=== PATIENT | female | born 1940 | race Caucasian/White ===

== ENCOUNTER → 2016-12-26 | Outpatient (CLI) | payer OTHER ==
[~2016-12-26] MED LIST: ALBUTEROL INHAL17 GM IH; COUMADIN7.5 MG PO; LOTREL 5-20 MG1 EACH PO; SIMVASTATIN40 MG PO; ZPAK PO
== END ==
LOC: RAD 07:53
DX: Z12.31 Encounter for screening mammogram for malignant neoplasm of breast (principal)

== ENCOUNTER → 2018-02-18 | Outpatient (CLI) | payer OTHER ==
[2018-02-18 07:58] LABS: CREATININE 0.7 mg/dL (0.6-1.0)
== END ==
LOC: CAT 07:19
PROVIDERS: Family Medicine
DX: M47.816 Spondylosis without myelopathy or radiculopathy, lumbar region (principal); M48.061 Spinal stenosis, lumbar region without neurogenic claudication; I10 Essential (primary) hypertension

== ENCOUNTER 2018-09-27 17:44 | Emergency (ER) | payer OTHER ==
[~2018-09-27] VITALS: Ht 157.5 cm; Wt 83.9 kg
[2018-09-27 19:45] LABS: ABSOLUTE NEUTROPHILS 9.6 thou/uL (1.4-8.2); BASOPHILS 0.7 % (0.0-2.0); EOSINOPHILS 0.2 % (0.0-3.0); HEMATOCRIT 38.2 % (37.0-47.0); HEMOGLOBIN 12.6 gm/dL (12.0-15.0); LYMPHOCYTES 17.7 % (24.0-44.0); MCH 28.9 pg (26.0-34.0); MCHC 33.1 g/dL (28.0-37.0); MCV 87.4 fL (80.0-100.0); MONOCYTES 11.9 % (1.0-8.0); PLATELET COUNT 186 thou/uL (150-400); POLYS 69.5 % (36.0-66.0); RBC 4.37 mil/uL (4.20-5.00); RDW 15.3 % (10.5-14.5); WBC 13.8 thou/uL (4.0-11.0)
[2018-09-27 19:50] LABS: ANION GAP 9 mmol/L (7-16); BUN 21 mg/dL (7-18); CHLORIDE 98 mmol/L (98-107); CO2 28 mmol/L (21-32); CREATININE 0.9 mg/dL (0.6-1.0); GLUCOSE 146 mg/dL (74-106); POTASSIUM 3.2 mmol/L (3.5-5.1); SODIUM 135 mmol/L (136-145)
[2018-09-27 19:58] LABS: ALBUMIN 3.8 g/dL (3.4-5.0); MAGNESIUM 1.6 mg/dL (1.8-2.4); SGOT 32 U/L (15-37); SGPT 35 U/L (30-65); TOTAL BILIRUBIN 1.3 mg/dL (<0.1-1.0); TOTAL PROTEIN 7.8 g/dL (6.4-8.2); TROPONIN-I <0.06 ng/mL (<0.06)
[2018-09-27 20:43] LABS: URINE BILIRUBIN NEGATIVE (Negative); URINE BLOOD 1+ (Negative); URINE CLARITY CLEAR; URINE COLOR YELLOW; URINE GLUCOSE-RANDOM* NEGATIVE (Negative); URINE KETONES NEGATIVE (Negative); URINE LEUKOCYTES-REFLEX 1+ (Negative); URINE NITRITE-REFLEX POSITIVE (Negative); URINE PROTEIN (DIPSTICK) 1+ (Negative); URINE UROBILINOGEN 0.2 E.U./dl (0.2-1.0)
[2018-09-27 20:43] LABS: APTT 42.6 Seconds (24.5-32.8); INR 1.8; PROTIME 18.4 Seconds (9.3-11.4)
[2018-09-27] MEDS ORDERED: CEFUROXIME500 MG PO (20:46)
[2018-09-27] MEDS ORDERED: TRAMADOL 50 MG50 MG PO (20:46)
[2018-09-27] MEDS ORDERED: NORFLEX100 MG PO (20:46)
[2018-09-27 20:52] LABS: SQUAMOUS 0-3 Few /LPF (0-3)
[2018-09-27 20:53] LABS: BACTERIA-REFLEX >30 Many /HPF (None Seen); CASTS None Seen /LPF (None Seen); CRYSTALS None Seen /LPF (None Seen); MUCUS 0-3 Light strn/LPF (None Seen); URINE RBC 0-2 Rare /HPF (0-2); URINE WBC-REFLEX >25 Many /HPF (0-5)
[2018-09-27 21:25] VITALS: BP 124/55
--- NOTE | 2018-09-28 02:37 | EKG ---
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1940 Requested By: Mukesh Meyers Order Number: [id number] MD: Rj Escamilla Measurements Intervals [place] Rate: 80 P: 69 MS: 143 QRS: 24 QRSD: 87 T: 17 QT: 378 QTc: 436 Interpretive Statements Sinus rhythm Nonspecific ST-T wave changes Compared to ECG 01/16/2011 10:02:28 No significant changes Electronically Signed On 09-28-2018 2:37:42 ELEMENT WINDING MACHINE TENDER by Rj Escamilla [email or web address] ��������������������������������������������� <ELECTRONICALLY SIGNED> ���������������������������������������� By: Rj Escamilla MD ��������������������������������������������� 09/28/18 0237 1751 50 Rj Escamilla MD /FARZANA
== END 2018-09-27 21:30 | disposition home or self-care (01) ==
LOC: ER 17:44
PROVIDERS: Emergency Medicine
DX: M43.6 Torticollis (principal); N39.0 Urinary tract infection, site not specified; E78.00 Pure hypercholesterolemia, unspecified; I10 Essential (primary) hypertension; Z88.0 Allergy status to penicillin

== ENCOUNTER → 2018-10-24 | Outpatient (CLI) | payer OTHER ==
[~2018-10-24] MED LIST changes: +CEFUROXIME500 MG PO; +NORFLEX100 MG PO; +TRAMADOL 50 MG50 MG PO
== END ==
LOC: RAD 07:56
DX: Z12.31 Encounter for screening mammogram for malignant neoplasm of breast (principal)

== ENCOUNTER → 2018-12-23 | Outpatient (CLI) | payer OTHER | LOC: ULTRA 09:46 | DX: M79.89 Other specified soft tissue disorders (principal); M79.661 Pain in right lower leg ==

== ENCOUNTER → 2020-01-13 | Outpatient (CLI) | payer OTHER | LOC: RAD 09:33 | PROVIDERS: ATTEND Family Medicine | DX: Z12.31 Encounter for screening mammogram for malignant neoplasm of breast (principal) ==

== ENCOUNTER 2020-05-24 08:29 | Inpatient (IN) | payer OTHER ==
[~2020-05-24] VITALS: Ht 157.5 cm; Wt 88.5 kg
[2020-05-24 08:30] VITALS: BP 127/65
[2020-05-24 09:13] LABS: ABSOLUTE NEUTROPHILS 5.1 thou/uL (1.4-8.2); BASOPHILS 0.5 % (0.0-2.0); EOSINOPHILS 0.1 % (0.0-3.0); HEMATOCRIT 39.3 % (37.0-47.0); HEMOGLOBIN 13.1 gm/dL (12.0-15.0); MCH 30.3 pg (26.0-34.0); MCHC 33.3 g/dL (28.0-37.0); MCV 91.2 fL (80.0-100.0); MONOCYTES 7.5 % (1.0-8.0); PLATELET COUNT 215 thou/uL (150-400); POLYS 71.9 % (36.0-66.0); RBC 4.31 mil/uL (4.20-5.00); RDW 16.3 % (10.5-14.5); WBC 7.1 thou/uL (4.0-11.0)
[2020-05-24 09:24] LABS: ANION GAP 10 mmol/L (7-16); BUN 36 mg/dL (7-18); CALCIUM 8.4 mg/dL (8.5-10.1); CHLORIDE 94 mmol/L (98-107); CO2 26 mmol/L (21-32); CREATININE 1.5 mg/dL (0.6-1.0); GLUCOSE 155 mg/dL (74-106); POTASSIUM 3.9 mmol/L (3.5-5.1); SODIUM 130 mmol/L (136-145)
[2020-05-24 09:32] LABS: TROPONIN-I <0.06 ng/mL (<0.06)
[2020-05-24 09:33] LABS: D-DIMER 0.36 ug/mLFEU (0.19-0.50); INR 2.5
[2020-05-24] MEDS ORDERED: METFORMIN HCL500 M3 PO (10:19)
[2020-05-24] MEDS ORDERED: SYNTHROID112 MC1 PO (10:19)
--- NOTE | 2020-05-24 11:08 | EKG ---
[facility] [place] [address] ELECTROCARDIOGRAM REPORT Name: MERCEDES LOZA Room #: REG [facility]#: [id number] Admission: 05/24/20 Attend Phys: Discharge: Date of : 42 Report #: [id number] THIS REPORT FOR: cc: Gino Banks MD, Rene P. MD Couchonnal, Luis F. 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
[2020-05-24 12:55] VITALS: BP 103/40
[2020-05-24 13:21] LABS: URINE BILIRUBIN NEGATIVE (Negative); URINE BLOOD NEGATIVE (Negative); URINE CLARITY CLEAR; URINE COLOR YELLOW; URINE GLUCOSE-RANDOM* NEGATIVE (Negative); URINE KETONES NEGATIVE (Negative); URINE LEUKOCYTES-REFLEX TRACE (Negative); URINE NITRITE-REFLEX POSITIVE (Negative); URINE PROTEIN (DIPSTICK) NEGATIVE (Negative); URINE SPECIFIC GRAVITY <= 1.005 (1.005-1.035); URINE UROBILINOGEN 0.2 E.U./dl (0.2-1.0)
[2020-05-24] MEDS ORDERED: BYSTOLIC10 MG PO (13:26)
[2020-05-24] MEDS ORDERED: OMEPRAZOLE40 MG PO (13:27)
[2020-05-24 13:38] LABS: CASTS None Seen /LPF (None Seen); SQUAMOUS 4-10 Moderate /LPF (0-3); URINE RBC None Seen /HPF (0-2); URINE WBC-REFLEX 6-15 Few /HPF (0-5)
[2020-05-24 13:39] LABS: CRYSTALS None Seen /LPF (None Seen)
[2020-05-24 13:58] LABS: FOLIC ACID 25.4 ng/mL (8.6-58.9); TSH 1.294 uIU/mL (0.358-3.740)
[2020-05-24 15:28] VITALS: BP 120/50
--- NOTE | 2020-05-24 16:35 | NUR ---
assumed care of pt on arrival to unit. pt presents in no acute distress. on room air. some tachypnea with exertion. up ad fabby w/ steady gait. Tmax 99.3. IV fluids and abx infusing per order. sinus on telemetry. med rec completed. pt in room, watching tv, calling out appropriately as needed. wcm.
[2020-05-24] MEDS ORDERED: WARFARIN SODIU7.5 MG PO (16:39)
[2020-05-24 19:53] VITALS: BP 109/47
[2020-05-24 23:51] VITALS: BP 112/56
[2020-05-25 03:10] VITALS: BP 122/67
[2020-05-25 05:52] LABS: HEMATOCRIT 37.3 % (37.0-47.0); HEMOGLOBIN 12.2 gm/dL (12.0-15.0); MCH 30.1 pg (26.0-34.0); MCHC 32.7 g/dL (28.0-37.0); PLATELET COUNT 164 thou/uL (150-400); RBC 4.05 mil/uL (4.20-5.00); RDW 16.5 % (10.5-14.5); WBC 2.8 thou/uL (4.0-11.0)
[2020-05-25 05:59] LABS: CALCIUM 8.1 mg/dL (8.5-10.1); CREATININE 1.2 mg/dL (0.6-1.0); MAGNESIUM 1.5 mg/dL (1.8-2.4); POTASSIUM 4.2 mmol/L (3.5-5.1)
--- NOTE | 2020-05-25 06:09 | NUR ---
Pt. stated she slept well during the night. Denies any discomfort at this time. Cont. on enhanced precaution , afebrile. Up ad fabby in room with steady gait. Tolerating room air well with O2 sat in the low 90 to mid 90's in room air.
[2020-05-25 07:35] VITALS: BP 124/54
[2020-05-25 07:52] LABS: ABSOLUTE NEUTROPHILS 2.1 thou/uL (1.4-8.2); ATYPICAL LYMPHS 1 %
[2020-05-25 07:53] LABS: ANISOCYTOSIS 1+; LARGE PLATELETS OCCASIONAL; POIKILOCYTOSIS SLIGHT
[2020-05-25 11:13] LABS: ALBUMIN 3.1 g/dL (3.4-5.0); DIRECT BILIRUBIN 0.2 mg/dL (<0.1-0.2); TOTAL BILIRUBIN 0.4 mg/dL (0.2-1.0); TOTAL PROTEIN 6.7 g/dL (6.4-8.2)
[2020-05-25 11:16] VITALS: BP 135/65
--- NOTE | 2020-05-25 12:58 | NUR ---
INITIAL ASSESSMENT: SW reviewed chart and spoke with nursing and attending physician. Pt was admitted from home due to pneumonia. Pt placed in Enhanced Isolation due to testing positive for COVID-19. Pt is afebrile and not requiring O2. Pt is on IV abx. ID consulted and will follow for possible need for course of Remdesivir. SW spoke with pt via phone. Introduced role of SW. Pt is alert/orientated x 4. 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 Pt is independent with ADLs and lives at home. Pt's PCP is Dr. Banks. Pt's goal is to return home when medically stable. SW is following to assist as needed with discharge planning.
[2020-05-25 15:11] VITALS: BP 142/64
--- NOTE | 2020-05-25 18:39 | NUR ---
ASSUMED PATIENT CARE AT 0700. A/0 X4. PLEASEANT. TOLERATED ON RA. DENIES PAIN. AFEBRILE. SLOWLY TOWARDS POC GOALS.
[2020-05-25 20:05] VITALS: BP 157/70
[2020-05-26 03:17] LABS: PROTIME 20.3 Seconds (9.3-11.4)
[2020-05-26 04:11] VITALS: BP 136/49
--- NOTE | 2020-05-26 05:53 | NUR ---
Pt. slept fair during the night. Tolerating room air well with O2 sat in the low to mid 90's. Reported shortness of breath with exertion only. Remdesivir Iv given x1 per ID order. Pt. education given regarding remdesivir and printed information given to pt. MRSA swab done. Sputum and urine sample sent to lab. Pt. is up ad fabby in room with steady gait.
[2020-05-26 08:05] VITALS: BP 151/51
[2020-05-26 09:27] LABS: ALBUMIN 3.1 g/dL (3.4-5.0); CREATININE 1.2 mg/dL (0.6-1.0); DIRECT BILIRUBIN 0.1 mg/dL (<0.1-0.2); TOTAL BILIRUBIN 0.3 mg/dL (0.2-1.0); TOTAL PROTEIN 6.5 g/dL (6.4-8.2)
[2020-05-26 11:39] VITALS: BP 149/68
[2020-05-26 15:08] VITALS: BP 154/58
--- NOTE | 2020-05-26 16:00 | NUR ---
SW reviewed chart and spoke with nursing and attending physician. Pt remains in Enhanced Isolation due to COVID-19. Pt is afebrile and not currently on O2. Pt is on IV abx and IV steroids. Pt started course of Remdesivir. Plan is for pt to discharge home when medically stable. MARIA E is following to assist as needed with discharge planning.
[2020-05-26 19:52] VITALS: BP 151/56
--- NOTE | 2020-05-26 20:21 | NUR ---
ASSUMED CARE APPROX 0700. PT ALERT AND ORIENTED X4. ASSESSMENTS CHARTED AND VSS. SR ON TELE MONITOR. DENIES PAIN THIS SHIFT. PT'S BP ELEVATED. REQUESTED HOME MEDS BE RESUMED. DR. HOOKER NOTIFIED. PT DENIES SHORTNESS OF BREATH. ON ROOM AIR W/O DISTRESS NOTED.
[2020-05-27 03:45] VITALS: BP 153/45
[2020-05-27 06:17] LABS: ABSOLUTE NEUTROPHILS 6.6 thou/uL (1.4-8.2); BASOPHILS 0.2 % (0.0-2.0); HEMATOCRIT 34.8 % (37.0-47.0); HEMOGLOBIN 11.4 gm/dL (12.0-15.0); LYMPHOCYTES 21.2 % (24.0-44.0); MCHC 32.9 g/dL (28.0-37.0); MCV 91.4 fL (80.0-100.0); MONOCYTES 9.1 % (1.0-8.0); PLATELET COUNT 202 thou/uL (150-400); POLYS 69.5 % (36.0-66.0); RDW 16.7 % (10.5-14.5); WBC 9.5 thou/uL (4.0-11.0)
[2020-05-27 06:31] LABS: ALBUMIN 2.9 g/dL (3.4-5.0); CALCIUM 8.6 mg/dL (8.5-10.1); CREATININE 0.9 mg/dL (0.6-1.0); POTASSIUM 3.7 mmol/L (3.5-5.1); TOTAL BILIRUBIN 0.4 mg/dL (0.2-1.0); TOTAL PROTEIN 6.7 g/dL (6.4-8.2)
[2020-05-27 06:32] LABS: ALBUMIN 2.9 g/dL (3.4-5.0); CREATININE 0.9 mg/dL (0.6-1.0); DIRECT BILIRUBIN 0.1 mg/dL (<0.1-0.2); FIBRINOGEN 351.3 mg/dL (210-360); INR 2.7; PROTIME 27.6 Seconds (9.3-11.4); TOTAL BILIRUBIN 0.4 mg/dL (0.2-1.0); TOTAL PROTEIN 6.7 g/dL (6.4-8.2)
[2020-05-27 07:51] VITALS: BP 148/55
--- NOTE | 2020-05-27 08:14 | NUR ---
PT MAKING PROGRESS TOWARDS GOALS. PT REPORTING MILD SOA AFTER ACTIVITY SUCH AMBULATING TO USE THE TOILET. STATES SHE NOTICES THAT BY THE TIME SHE GETS BACK TO THE BED SHE IS SOA. ABLE TO RESOLVE SOA WITH REST, DENIED NEEDING ANY OXYGEN.
[2020-05-27 11:20] VITALS: BP 145/64
[2020-05-27 15:25] VITALS: BP 151/62
--- NOTE | 2020-05-27 16:01 | NUR ---
SW reviewed chart and spoke with nursing and attending physician. Pt remains in Enhanced Isolation due to COVID-19. Pt is afebrile and not requiring O2. Pt is on IV abx and IV steroids. Pt is completing course of Remdesivir. Plan is for pt to discharge home when medically stable. MARIA E is following to assist as needed with discharge planning.
--- NOTE | 2020-05-27 16:40 | NUR ---
ASSUMED CARE APPROX 0700. PT ALERT AND ORIENTED X4. ASSESSMENTS CHARTED AND VSS. PT AFEBRILE THIS SHIFT. ON ROOM AIR W/O DISTRESS NOTED. PT DENIES ACUTE PAIN. PT DENIES CHEST PAIN. REMDESIVIR STARTED THIS SHIFT W/O COMPLICATIONS. RESTING COMFORTABLY IN BED. PT PROGRESSING TOWARDS PLAN OF CARE GOALS
[2020-05-27 20:38] VITALS: BP 168/81
[2020-05-27] MEDS ORDERED: HYDROCHLOROTHIA25 M2 PO (20:41)
--- NOTE | 2020-05-28 03:57 | NUR ---
ASSUMED CARE AT 1900. PT REPORTS SOB W/ACTIVITY BUT IS COMFORTABLE AT REST. DENIES PAIN OR NAUSEA. HAS BEEN SB IN 50'S OVERNIGHT. HS BLOOD SUGAR 242, GAVE 10 UNITS INSULIN. NO OTHER CONCERNS, WILL CONTINUE TO MONITOR.
[2020-05-28 04:48] VITALS: BP 141/57
[2020-05-28 07:02] LABS: INR 3.2; PROTIME 32.6 Seconds (9.3-11.4)
[2020-05-28 07:11] LABS: ALBUMIN 2.8 g/dL (3.4-5.0); CREATININE 0.8 mg/dL (0.6-1.0); DIRECT BILIRUBIN 0.1 mg/dL (<0.1-0.2); TOTAL BILIRUBIN 0.5 mg/dL (0.2-1.0); TOTAL PROTEIN 6.5 g/dL (6.4-8.2)
[2020-05-28 07:55] VITALS: BP 150/61
[2020-05-28 11:41] VITALS: BP 158/59
[2020-05-28 15:16] VITALS: BP 176/64
--- NOTE | 2020-05-28 16:06 | NUR ---
SW reviewed chart and spoke with nursing and attending physician. Pt remains in Enhanced Isolation due to COVID-19. Pt is afebrile and not requiring O2. Pt is on IV abx and IV steroids. Pt is completing course of Remdesivir. SW placed call into pt's room multiple times. No answer. No anticipated discharge needs identified at this time. SW is following to assist should needs arise.
[2020-05-28 16:08] VITALS: BP 164/68
--- NOTE | 2020-05-28 18:32 | NUR ---
ASSUMED CARE OF PT AT 0700. PT AOX4 IN NO ACUTE DISTRESS. BREATHING COMFORTABLY ON ROOM AIR. TACHYPNEA WITH EXERTION IMPROVING. GOOD APPETITE. IV SITE CHANGED. WCM .
[2020-05-28 19:29] VITALS: BP 155/56
[2020-05-29 05:26] LABS: INR 2.8; PROTIME 29.1 Seconds (9.3-11.4)
[2020-05-29 05:37] LABS: ALBUMIN 2.7 g/dL (3.4-5.0); CREATININE 0.8 mg/dL (0.6-1.0); DIRECT BILIRUBIN 0.2 mg/dL (<0.1-0.2); TOTAL BILIRUBIN 0.6 mg/dL (0.2-1.0); TOTAL PROTEIN 6.4 g/dL (6.4-8.2)
[2020-05-29 05:50] VITALS: BP 158/53
--- NOTE | 2020-05-29 06:04 | NUR ---
PT MAKING PROGRESS TOWARDS GOALS. PT REPORTING SHE IS AMBULATING TO TOILET AND BACK WITH NO SENSE OF SOA. CONTINUE TO MONITOR.
[2020-05-29 07:47] VITALS: BP 174/73
--- NOTE | 2020-05-29 10:44 | NUR ---
PATIENT RESTING IN BED ALERT XS 4 ATE BREAKFAST AND TOOK AM MEDS IV NURSE TO PLACE NEW LINE RIGHT FA INFILTRATED PT STATES SHE IS HARD STICK AND PREFERS IV NURSE AND MACHINE. PT IS PLEASANT AND COOPERATIVE WITH CARE.
[2020-05-29 11:39] VITALS: BP 142/68
[2020-05-29 16:04] VITALS: BP 186/78
--- NOTE | 2020-05-29 18:42 | NUR ---
PT HAD HIGH B/P CALLED HOSPITALIST WHO PUT IN ORDERS FOR MEDS FOR XS 1 ORDERS FOLLOWED AND B/P RECHECKED AND IN COMPUTER.
--- NOTE | 2020-05-29 18:47 | NUR ---
B/P AFTER B/P MEDS = 136/57
[2020-05-29 21:30] VITALS: BP 131/54
[2020-05-30 05:00] VITALS: BP 148/69
[2020-05-30 06:07] LABS: INR 2.4
[2020-05-30 07:16] VITALS: BP 115/60
--- NOTE | 2020-05-30 07:54 | NUR ---
PROGRESS PT A/O X 4 STATES SHE DOESN'T FEEL WELL. BUT COULDN'T ARTICULATE WHAT EXACTLY SHE FELT LIKE A COUPLE HOURS LATER SHE FELT NAUSEOUS AND ZOFRAN GIVEN WITH EFFECT PT SLEPT THE REST OF THE NIGHT BP STAYED WNL AND ENALAPRIT NOT GIVEN, VOIDING QS UP AD JOVANNA CONTINUE POC.
[2020-05-30 11:19] VITALS: BP 134/75
[2020-05-30] MEDS ORDERED: PEPCID AC10 MG PO (14:40)
[2020-05-30] MEDS ORDERED: ACETAMINOPHEN325 M1 PO (14:40)
[2020-05-30] MEDS ORDERED: VITAMIN B-1100 M2 PO (14:40)
[2020-05-30] MEDS ORDERED: DOXYCYCLINE HYC50 MG PO (14:40)
[2020-05-30] MEDS ORDERED: ACEROLA C500 MG PO (14:40)
[2020-05-30 15:28] VITALS: BP 134/75
--- NOTE | 2020-05-30 16:37 | NUR ---
PT A&OX4, VSS, DENIES PAIN AND N/V. PATIENT CONTINUES TO HAVE LOOSE COUGH, SPUTUM CLEAR/YELLOW. PATIENT CLEARED BY ID. PATIENT COMMUNICATES UNDERSTANDING OF DISCHARGE ORDERS. PATIENT TOLERATED DIET. NO SIGNS OF ACUTE DISTRESS. PATIENT DISCHARGED HOME, ALL BELONGINGS TAKEN. IV REMOVED, TELE PACK REMOVED.
== END 2020-05-30 16:35 | disposition home or self-care (01) | DRG 871 ==
LOC: ER 08:29 → 3W 12:02 → EROBS 12:02 → 3W 13:17
PROVIDERS: Emergency Medicine; Nurse Practitioner; Specialist; ADMIT Hospitalist; ATTEND Hospitalist
PROC: XW033E5 Introduction of Remdesivir Anti-infective into Peripheral Vein, Percutaneous Approach, New Technology Group 5 (ICD-10-PCS; principal; 2020-05-26)
PROC: XW033E5 Introduction of Remdesivir Anti-infective into Peripheral Vein, Percutaneous Approach, New Technology Group 5 (ICD-10-PCS; 2020-05-27)
PROC: XW033E5 Introduction of Remdesivir Anti-infective into Peripheral Vein, Percutaneous Approach, New Technology Group 5 (ICD-10-PCS; 2020-05-28)
PROC: XW033E5 Introduction of Remdesivir Anti-infective into Peripheral Vein, Percutaneous Approach, New Technology Group 5 (ICD-10-PCS; 2020-05-29)
PROC: XW033E5 Introduction of Remdesivir Anti-infective into Peripheral Vein, Percutaneous Approach, New Technology Group 5 (ICD-10-PCS; 2020-05-30)
DX: A41.89 Other specified sepsis (principal); U07.1 COVID-19; J12.89 Other viral pneumonia; J15.9 Unspecified bacterial pneumonia; N17.9 Acute kidney failure, unspecified; N39.0 Urinary tract infection, site not specified; Z16.12 Extended spectrum beta lactamase (ESBL) resistance; D68.59 Other primary thrombophilia; E87.1 Hypo-osmolality and hyponatremia; I16.0 Hypertensive urgency; I10 Essential (primary) hypertension; E11.9 Type 2 diabetes mellitus without complications; E86.0 Dehydration; E03.9 Hypothyroidism, unspecified; E78.5 Hyperlipidemia, unspecified; E78.00 Pure hypercholesterolemia, unspecified; R91.8 Other nonspecific abnormal finding of lung field; E66.9 Obesity, unspecified; E87.8 Other disorders of electrolyte and fluid balance, not elsewhere classified; Z86.711 Personal history of pulmonary embolism; Z86.718 Personal history of other venous thrombosis and embolism; Z79.01 Long term (current) use of anticoagulants; Z79.899 Other long term (current) drug therapy; Z88.0 Allergy status to penicillin; Z98.42 Cataract extraction status, left eye; Z98.41 Cataract extraction status, right eye; Z87.891 Personal history of nicotine dependence; Z68.35 Body mass index [BMI] 35.0-35.9, adult
CPT/HCPCS: 10879

== ENCOUNTER → 2020-06-04 | Outpatient (CLI) | payer OTHER ==
[~2020-06-04] MED LIST changes: +ACEROLA C500 MG PO; +ACETAMINOPHEN325 M1 PO; +BYSTOLIC10 MG PO; +C-10001000 MG PO; +DOXYCYCLINE HYC50 MG PO; +HYDROCHLOROTHIA25 M2 PO; +METFORMIN HCL500 M3 PO; +OMEPRAZOLE 20 M20 M1 PO; +OMEPRAZOLE40 MG PO; +PEPCID AC10 MG PO; +SYNTHROID112 MC1 PO; +TYLENOL325 MG PO; +VITAMIN B-1100 M2 PO; +WARFARIN SODIU7.5 MG PO
== END ==
LOC: LAB 09:58
PROVIDERS: ATTEND Pediatrics
DX: U07.1 COVID-19 (principal)

== ENCOUNTER → 2020-06-08 | Outpatient (CLI) | payer OTHER | LOC: LAB 08:29 | PROVIDERS: ATTEND Pediatrics | DX: Z20.828 Contact with and (suspected) exposure to other viral communicable diseases (principal) ==

== ENCOUNTER 2020-06-09 08:26 | Outpatient (CLI) | payer OTHER ==
[~2020-06-09] VITALS: Ht 157.5 cm; Wt 86.2 kg
[2020-06-09 09:57] VITALS: BP 174/82
[2020-06-09 10:14] LABS: INR 1.4; PROTIME 13.9 Seconds (9.3-11.4)
--- NOTE | 2020-06-11 15:07 | PATH ---
[facility] [place] [address] PATHOLOGY RPT PROCEDURE Name: MERCEDES LOZA Room #: DEP [facility]#: [id number] Admission: 06/09/20 Date of : 42 Discharge: 06/09/20 Report #: [id number] Path Case #: [id number] Note [facility] Accession Number: [id number] TESTS RESULT FLAG UNITS REF RANGE LAB Clinician Provided Cytology Information No. of containers..01 Other (Miscellaneous) Source: RLL BRONCH WASH DIAGNOSIS: RLL BRONCH WASH INCONCLUSIVE. REACTIVE BRONCHIAL CELLS ARE PRESENT. PULMONARY MACROPHAGES (DUST CELLS) ARE PRESENT. THIS INTERPRETATION INCLUDES EVALUATION OF A CELL BLOCK. SCANT ATYPICAL SQUAMOUS EPITHELIAL CELLS, CANNOT EXCLUDE NEOPLASM. Comment: Few groups of atypical squamous epithelial cells are identified. The scant nature precludes a definitive interpretation. The concurrent biopsy sample is pending additional immunohistochemical stains. Please refer to a separate report. Findings of the biopsy tissue are conveyed to Dr. Colbert in the morning of 06/11/2020. Pathologist ICD10: 02 R91.8 Signed out by: Anna Interiano MD, Pathologist NPI- [id number] Performed by: Bertha Clarke, Casting Wheel Operator Helper ([facility]) Gross description: 01 20ML, RED, 1TP 1CB /LCS 06/10/2020 0605 Local FLAG LEGEND: L-Low Normal,H-High Normal,LL-Alert Low,HH-Alert High <-Panic Low,>-Panic High,A-Abnormal,AA-Critical Abnormal Performed at: 01 [facility] [address] [place] [address] [address] [place] [address] Sammy Sun MD, [address] [address] Anna Interiano MD, Specimen Comment: A courtesy copy of this report has been sent to [phone], [phone] [address] PATHOLOGY RPT PROCEDURE Name: MERCEDES LOZA Room #: DEP [facility] Daniels#: [id number] Admission: 06/09/20 Date of : 42 Discharge: 06/09/20 Report #: [id number] Path Case #: [id number] Specimen Comment: [phone] Specimen Comment: Report sent to / DR MCKEON Performed at: [address], [place], [place] [id number] MD Sammy Sun MD Phone: [phone]
--- NOTE | 2020-06-11 17:06 | PATH ---
[facility] [address] [place] [address] PATHOLOGY RPT PROCEDURE Name: SABRA DAVID Mallika Room #: DEP [facility].#: [id number] Admission: 06/09/20 Date of : 42 Discharge: 06/09/20 Report #: [id number] Path Case #: [id number] [facility] Accession Number: [id number] . 01 Material submitted: . PART A: lymph node - RIGHT HILAR LYMPH NODE TBNA. Modifiers: right PART B: bronchus - RLL TISSUE BIOPSY. Modifiers: right, lower lobe . 01 Clinical history: . LUNG MASS . 02 Diagnosis: A. Tissue designated as "right hilar lymph node", transbronchial needle aspiration: - Fragments of atypical squamous epithelium, cannot exclude neoplasm. - No definite lymphoid tissue present, see comment. - Blood admixed with reactive bronchial epithelial cells. . B. Lung, right lower lobe tissue, biopsy: - POSITIVE FOR MALIGNANCY; MODERATELY DIFFERENTIATED SQUAMOUS CELL CARCINOMA. (IUV:blake; 06/11/2020) QMS 06/11/2020 1201 Local . 02 Comment: A. Examination shows blood admixed with reactive bronchial epithelial cells as well as tiny wisps of atypical squamous epithelium. The concurrent cytology material [id number] (please separate report for details) showed lymphoid tangles compatible with adequate lymph node sampling in addition to similar cells. The scant nature precludes a definitive interpretation. Please correlate clinically. . B. Examination shows an epithelial malignancy with scant to rare desmosomes. Properly controlled immunohistochemical stains are performed on block B1. The neoplastic cells show strong reactivity with p63 and are nonreactive to TTF-1 supporting the diagnosis rendered. . Co-review: Part B (level 1) by Dr. Emma Sotelo. . Findings of this case are conveyed to Dr. Kwasi Colbert at approximately 8:45 a.m. on 06/11/2020. (IUV:blake; 06/11/2020) . 02 Electronically signed: . Anna Interiano MD, Pathologist NPI- [id number] . 01 [place] [address] PATHOLOGY RPT PROCEDURE Name: SABRA DAVID Room #: DEP [facility]#: [id number] Admission: 06/09/20 Date of : 42 Discharge: 06/09/20 Report #: [id number] Path Case #: [id number] Gross description: . A. Received in formalin labeled "Sabra David, right hilar lymph node TBNA" are multiple minute fragments of gresham-red soft tissue measuring in aggregate 2.0 x 0.3 x 0.1 cm. The specimen is filtered and submitted entirely in cassettes A1-A2. . B. Received in formalin labeled "Sabra David, RLL biopsy" are multiple fragments of gresham-brown tissue measuring in aggregate 1.0 x 0.6 x 0.1 cm. The specimen is submitted entirely in cassettes B1-B2. ([facility]; 06/10/2020) [facility] 06/10/2020 1619 Local . 02 Pathologist provided ICD-10: C34.31 . 02 CPT . 741747, 338258, I32858, S74008 Specimen Comment: A courtesy copy of this report has been sent to [phone] Specimen Comment: [phone] Specimen Comment: Report sent to / DR MCKEON Performed at: [address], [place] [id number] MD Sammy Sun MD Phone: [phone] Performed at: [address] [id number] MD Anna Interiano MD Phone: [phone]
--- NOTE | 2020-06-25 11:07 | PATH ---
[facility] [place] [address] PATHOLOGY RPT PROCEDURE Name: MERCEDES LOZA Room #: DEP [facility].#: [id number] Admission: 06/09/20 Date of : 42 Discharge: 06/09/20 Report #: [id number] Path Case #: [id number] Note [facility] Accession Number: [id number] TESTS RESULT FLAG UNITS REF RANGE LAB Clinician Provided Cytology Information No. of containers..01 Other (Miscellaneous) Source: RIGHT [address]REE LN DIAGNOSIS: 02 RIGHT HILAR LYMPH NODE ABUNDANT REACTIVE BRONCHIAL CELLS ARE PRESENT. LYMPHOID TANGLES COMPATIBLE WITH ADEQUATE LYMPH NODE SAMPLING. SCANT SHEETS OF ATYPICAL EPITHELIAL CELLS; CANNOT EXCLUDE NEOPLASM. Comment: Rapid onsite immediate evaluation was performed for adequacy of lymph node sampling during the procedure. The following immediate evaluation was rendered along with discussing the findings with Dr. Colbert: FEW LYMPHOID TANGLES AMONGST SEVERAL BRONCHIAL EPITHELIAL CELLS ALONG WITH A FEW ATYPICAL CELLS. Pathologist ICD10: 02 R91.8 Signed out by: 02 Anna Interiano MD, Pathologist NPI- [id number] Performed by: 01 Bertha Clarke, Making Machine Catcher ([facility]) Gross description: 2 FX /LCS 06/10/2020 0612 Local FLAG LEGEND: L-Low Normal,H-High Normal,LL-Alert Low,HH-Alert High <-Panic Low,>-Panic High,A-Abnormal,AA-Critical Abnormal Performed at: 01 [facility] [address] [place] [address] Sammy Sun MD, [address] [address] Anna Interiano MD, Specimen Comment: A courtesy copy of this report has been sent to [phone] Specimen Comment: Report sent to Performed at: 01 [facility] [address] [place] [address] PATHOLOGY RPT PROCEDURE Name: MERCEDES LOZA Room #: DEP [facility]#: [id number] Admission: 06/09/20 Date of : 42 Discharge: 06/09/20 Report #: [id number] Path Case #: [id number] [address], [place], [place] [id number] MD Sammy Sun MD Phone: [phone]
== END 2020-06-09 15:20 | disposition home or self-care (01) ==
LOC: PUL 08:26 → TBA 08:29 → PUL 15:20
PROVIDERS: ATTEND Pediatrics
DX: R91.8 Other nonspecific abnormal finding of lung field (principal); C34.91 Malignant neoplasm of unspecified part of right bronchus or lung; I10 Essential (primary) hypertension; E11.9 Type 2 diabetes mellitus without complications; E78.00 Pure hypercholesterolemia, unspecified; K21.9 Gastro-esophageal reflux disease without esophagitis; E03.9 Hypothyroidism, unspecified; Z98.890 Other specified postprocedural states; Z79.899 Other long term (current) drug therapy; Z90.49 Acquired absence of other specified parts of digestive tract; Z90.710 Acquired absence of both cervix and uterus; Z98.41 Cataract extraction status, right eye; Z98.42 Cataract extraction status, left eye; Z87.891 Personal history of nicotine dependence; Z88.0 Allergy status to penicillin; Z88.8 Allergy status to other drugs, medicaments and biological substances
CPT/HCPCS: 50010; 62110; 62900; 70005

== ENCOUNTER → 2020-06-23 | Outpatient (CLI) | payer OTHER | LOC: LAB 08:56 | PROVIDERS: ATTEND Family Medicine | DX: Z20.828 Contact with and (suspected) exposure to other viral communicable diseases (principal) ==

== ENCOUNTER 2020-07-12 06:07 | Inpatient (IN) | payer OTHER ==
[2020-07-06 08:54] LABS: ABSOLUTE NEUTROPHILS 3.3 thou/uL (1.4-8.2); BASOPHILS 0.8 % (0.0-2.0); EOSINOPHILS 3.6 % (0.0-3.0); HEMATOCRIT 36.2 % (37.0-47.0); HEMOGLOBIN 11.9 gm/dL (12.0-15.0); LYMPHOCYTES 34.9 % (24.0-44.0); MCH 30.2 pg (26.0-34.0); MCHC 32.9 g/dL (28.0-37.0); MCV 91.8 fL (80.0-100.0); MONOCYTES 8.8 % (1.0-8.0); PLATELET COUNT 220 thou/uL (150-400); POLYS 51.9 % (36.0-66.0); RBC 3.95 mil/uL (4.20-5.00); RDW 16.1 % (10.5-14.5); WBC 6.3 thou/uL (4.0-11.0)
[2020-07-06 09:04] LABS: URINE BILIRUBIN NEGATIVE (Negative); URINE BLOOD NEGATIVE (Negative); URINE CLARITY CLEAR; URINE COLOR YELLOW; URINE GLUCOSE-RANDOM* NEGATIVE (Negative); URINE KETONES NEGATIVE (Negative); URINE NITRITE-REFLEX NEGATIVE (Negative); URINE PROTEIN (DIPSTICK) NEGATIVE (Negative); URINE UROBILINOGEN 0.2 E.U./dl (0.2-1.0)
[2020-07-06 09:12] LABS: URINE LEUKOCYTES-REFLEX 2+ (Negative)
[2020-07-06 09:13] LABS: ALBUMIN 3.3 g/dL (3.4-5.0); CALCIUM 8.8 mg/dL (8.5-10.1); CREATININE 0.9 mg/dL (0.6-1.0); POTASSIUM 3.2 mmol/L (3.5-5.1); TOTAL BILIRUBIN 0.7 mg/dL (0.2-1.0); TOTAL PROTEIN 7.3 g/dL (6.4-8.2)
[2020-07-06 09:21] LABS: APTT 42.7 Seconds (24.5-32.8); INR 4.1; PROTIME 42.4 Seconds (9.3-11.4)
[2020-07-06 09:38] LABS: CASTS None Seen /LPF (None Seen); CRYSTALS None Seen /LPF (None Seen); SQUAMOUS 0-3 Few /LPF (0-3)
[2020-07-06 09:40] LABS: URINE RBC None Seen /HPF (0-2); URINE WBC-REFLEX 6-15 Few /HPF (0-5)
--- NOTE | 2020-07-06 13:13 | EKG ---
[facility] [address] [facility] [place] [address] ELECTROCARDIOGRAM REPORT Name: MERCEDES LOZA Room #: PRE IN M.R.#: [id number] Admission: Attend Phys: Steve Adam MD Discharge: Date of : 42 Report #: [id number] THIS REPORT FOR: cc: Gino Banks MD, Rene P. MD Santiago, Patrick MD MERGED WITH [facility] ~ THIS REPORT FOR: //name// [facility] Test Date: 2020-07-06 Test Time: 08:43:50 Pat Name: MERCEDES LOZA Department: Room: Gender: F Observation Nurse: SYLWIA RICHARDS : 1940 Requested By: Steve Adam Order Number: [id number] MD: Angel Luis Myrick Measurements Intervals [place] Rate: 56 P: 34 RI: 144 QRS: 50 QRSD: 93 T: 44 QT: 465 QTc: 449 Interpretive Statements Sinus rhythm Baseline wander in lead(s) V1,V2,V3 Compared to ECG 05/24/2020 09:22:41 No significant changes Electronically Signed On 07-06-2020 13:13:18 MULTI CARE TECHNICIAN by Angel Luis Myrick [email or web address] <ELECTRONICALLY SIGNED> By: Angel Luis Myrick MD, FACC 07/06/20 1313 0843 0843 Angel Luis Myrick MD, MERGED WITH [facility] /EPI
[2020-07-12] VITALS (7 sets, daily range): BP systolic 100–145; BP diastolic 44–67
[~2020-07-12] VITALS: Ht 154.9 cm; Wt 91.8 kg
--- NOTE | 2020-07-12 12:20 | NUR ---
1215- PATIENT ARRIVED FROM PACU. SUPERINTENDENT OF GENERATION FENTANYL PUMP INITIATED. PATIENT EXPRESSED SHE IS IN PAIN. EDUCATION PROVIDED IN REGARDS TO SUPERINTENDENT OF GENERATION PUMP FOR PAIN CONTROL. CHEST TUBE PLACED TO -20 SUCTION, OUTPUT NOTED. PATIENT ALERT AND ORIENTED, HOWEVER, RESTLESS. NURSE PLAN OF CARE AND PATIENT PLAN OF CARE IS TO MANAGE PAIN LEVEL.
[2020-07-12 14:39] LABS: PROTIME 11.2 Seconds (9.3-11.4)
[2020-07-12 14:51] LABS: INR 1.1
--- NOTE | 2020-07-12 15:06 | NUR ---
Around 1310, nurse informed Dr. Adam of urine output of 6ml, no further orders at this time. Around 1415, nurse informed Kwasi of continued low urine output this hour of 7ml. No further orders at this time for this. Nurse performed bladder scan at 1340- zero in bladder x3. Patient expressed she does not feel like she needs to void at this time, no pressure. Nurse to continue to monitor patient status and urine output.
--- NOTE | 2020-07-12 15:08 | NUR ---
Patient was anxious and restless, expressing she had to belch. She expressed she couldn't take it. Kwasi was here and orders received. Patient was repositioned at that time more onto her left side to assist with this, and upright. [place], lemon/[place], was given to assist. She let out three large bleches and then said it felt a little better. She is sleeping at this time. Pain RAILROAD OPERATOR button in hand, if she expresses pain, nurse informs her to hit her button for pain control.
--- NOTE | 2020-07-12 18:30 | NUR ---
1820- NURSE INFORMED DR. SHERWOOD OF URINE OUTPUT OF 50 ML THIS SHIFT. HE EXPRESSED HE WILL PUT IN ORDERS.
--- NOTE | 2020-07-12 19:15 | NUR ---
Patient progressing towards plan of care. Her pain is better controlled, less issues with the need to belch. She has been turned as indicated. Chest tube assessed as documented. Physicians informed of patients urine output. Orders noted. Plan of care is monitor chest tube drainage, urine output, vital signs, and fish dressing machine feeder pump reminders for the patient.
[2020-07-12 20:30] LABS: HEMATOCRIT 36.3 % (37.0-47.0); HEMOGLOBIN 11.8 gm/dL (12.0-15.0); MCH 30.4 pg (26.0-34.0); MCHC 32.6 g/dL (28.0-37.0); MCV 93.1 fL (80.0-100.0); RBC 3.9 mil/uL (4.20-5.00); RDW 16.1 % (10.5-14.5); WBC 18.5 thou/uL (4.0-11.0)
[2020-07-12 20:45] LABS: ALBUMIN 3.1 g/dL (3.4-5.0); CALCIUM 8.8 mg/dL (8.5-10.1); CREATININE 1.4 mg/dL (0.6-1.0); MAGNESIUM 1.5 mg/dL (1.8-2.4); POTASSIUM 3.6 mmol/L (3.5-5.1); TOTAL BILIRUBIN 0.5 mg/dL (0.2-1.0); TOTAL PROTEIN 7.1 g/dL (6.4-8.2)
[2020-07-13] VITALS (11 sets, daily range): BP systolic 88–151; BP diastolic 43–96
--- NOTE | 2020-07-13 00:38 | NUR ---
This RN to bedside at 1900. Patient stable, alert and oriented, only complaining of minimal pain. Patients big concern is heartburn and nausea. This RN gave scheduled zofran, tums tablets, and pepcid. Improved after giving, after a couple hours nausea began again. Encouraged ice chips and sipping soda. This RN discussed low urine output with Jennifer Adorno, SILVA and pateints nausea. Discussed labs and medications. No new orders at this time, continue to monitor urine output. Dr. Adam aware.
--- NOTE | 2020-07-13 12:28 | O ---
[facility] [place] [address] OPERATIVE REPORT Name: MERCEDES LOZA Room #: 249-P ADM IN M.R.#: [id number] Admission: 07/12/20 Attend Phys: Steve Adam MD Discharge: Date of : 42 Report #: [id number] THIS REPORT FOR: cc: Gino Banks MD, Rene P. MD Forman, John M. MD ~ CC: Steve Banks DATE OF SERVICE: 07/12/2020 PREOPERATIVE DIAGNOSIS: Lung cancer, right lower lobe. POSTOPERATIVE DIAGNOSIS: Lung cancer, right lower lobe. OPERATION: Bronchoscopy, right thoracotomy with lower lobectomy and lymph node dissection. SURGEON: Steve Adam MD VACUUM CLOSING MACHINE OPERATOR: JEFF Miller ANESTHESIA: General. INDICATIONS: The patient is a 79-year-old seen for the [facility]. The patient has evidence of right lower lobe cancer, this has activity on PET scan, but there was no another area of activity. The patient has satisfactory pulmonary function and performance status to suggest that she will tolerate lobectomy. FINDINGS AND TECHNIQUE: After general anesthesia was established, flexible diagnostic bronchoscopy was performed. No specific endobronchial lesions were noted; however, the posterior basal segmental bronchi were reddened, blunted suggesting the location of the tumor. A double lumen endotracheal tube was placed and its position ascertained with bronchoscopic guidance. Exposure was obtained through a right posterolateral thoracotomy. Chest was entered through the fifth interspace using a rib sparing, nerve sparing approach. The tumor was identified in the lower lobe. The oblique fissure was reasonably well developed and this was exploited to expose the interlobar pulmonary artery. Arterial branches to the lower lobe were ligated and divided or stapled and divided. The pleural reflection was circumdissected and pulmonary ligament was divided. Lymph nodes in the pulmonary ligament and in the hilum were submitted for permanent pathology. [facility] [address] [place] [address] OPERATIVE REPORT Name: DAGOMERCEDES M Room #: 249-P ADM IN .R.#: [id number] Admission: 07/12/20 Attend Phys: Steve Adam MD Discharge: Date of : 42 Report #: [id number] With the pulmonary arterial branches to the lower lobe divided, the inferior pulmonary vein was circumdissected, stapled, and divided. This left the bronchus. This was circumdissected and the staple was applied and good ventilation of the upper and middle lobe was observed. The lower lobe bronchus was stapled and divided and the lobe was submitted for permanent pathology. Lymph nodes in the hilum were submitted for permanent pathology. The area above the azygos vein was opened and level 4 lymph nodes were harvested and sent for permanent pathology. The subcarinal area was inspected; I did not find any large nodes to send there. Bronchus was tested and found to be airtight. Hemostasis was ascertained, a chest tube was brought through separate stab wounds and then the chest was closed in layers to preserve the nerve sparing, rib sparing approach. The patient tolerated the procedure well and was taken to the recovery area in good condition. All counts reported as correct. <ELECTRONICALLY SIGNED> By: Steve Adam MD 07/13/20 1228 1045 1105 Steve Adam MD /nt
--- NOTE | 2020-07-13 16:08 | NUR ---
vascular access consulted for ml. DISCUSSED BENEFITS AND RISK WITH PT, VERBALIZED UNDERSTANDING. ATTEMPTED JENNIE CEPHALIC UNABLE TO PASS GUIDEWIRE. JENNIE BASILIC WAS WIDELY PATENT 4FR POWER ML TRIMMED TO 10CM INSERTED TO 0CM WITH BRISK BR. ML RELEASED FOR IMMEDIATE USE PER PROTOCOL. PT TOLERATED WELL
--- NOTE | 2020-07-13 17:06 | NUR ---
chart review. pt transferred out of icu today to ccu. 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 natacha had hh in past. no home o2, was requiring oxygen. she manage own medication and drives vehicle sometimes. will cont following as needed for dc needs.
[2020-07-13 17:49] LABS: URINE BILIRUBIN NEGATIVE (Negative); URINE BLOOD TRACE (Negative); URINE CLARITY CLEAR; URINE COLOR YELLOW; URINE GLUCOSE-RANDOM* NEGATIVE (Negative); URINE KETONES NEGATIVE (Negative); URINE NITRITE-REFLEX NEGATIVE (Negative); URINE PROTEIN (DIPSTICK) TRACE (Negative); URINE SPECIFIC GRAVITY >= 1.030 (1.005-1.035); URINE UROBILINOGEN 0.2 E.U./dl (0.2-1.0)
[2020-07-13 17:52] LABS: URINE LEUKOCYTES-REFLEX 1+ (Negative)
--- NOTE | 2020-07-13 17:55 | NUR ---
ASSUMED CARE @ 0700 07/13/20, PT ASSESSMENTS AND VSS COMPLETE PER ICU PRT. PT ENOUNTERED ON A DISABILITY EXAMINER PUMP, @ 1011, PT STARTS TO COMPLAIN THAT SHE FEELS ITCHY AND HER THROAT FEELS DRY EVERYTIME SHE PRESSES THE DISABILITY EXAMINER DELIVERY BUTTON. THE DISABILITY EXAMINER WAS IMMEDIATELY SHUT OFF, KAMI AND DR BLANTON MADE AWARE OF THIS. @ 1515, PT PLACED IN THE BED TO PLACE MIDLINE AND WHEN PT WAS PULLED UP, PT SAID SHE FELT PRESSURE IN HER CHEST TUBE SITE, STAT CHEST XRAY DONE PER PRT, DR BLANTON CALLED TO REPORT RESULTS, NO ORDERS RECIEVED AT THIS TIME. MIDLINE PLACED REPORT GIVEN TO [facility], PT TRANSPORTED @ 1557 WITH THE ASSIST OF ANOTHER RN, NO COMPLICATIONS NOTED.
[2020-07-13 18:09] LABS: BACTERIA-REFLEX 1-9 Few /HPF (None Seen); CASTS None Seen /LPF (None Seen); CRYSTALS None Seen /LPF (None Seen); SQUAMOUS 0-3 Few /LPF (0-3); URINE RBC 0-2 Rare /HPF (0-2); URINE WBC-REFLEX 6-15 Few /HPF (0-5)
[2020-07-13 22:26] LABS: HEMATOCRIT 31.9 % (37.0-47.0); HEMOGLOBIN 10.4 gm/dL (12.0-15.0); MCH 30.4 pg (26.0-34.0); MCHC 32.5 g/dL (28.0-37.0); MCV 93.4 fL (80.0-100.0); RBC 3.41 mil/uL (4.20-5.00); RDW 16.2 % (10.5-14.5); WBC 15.8 thou/uL (4.0-11.0)
[2020-07-13 22:34] LABS: CALCIUM 8.8 mg/dL (8.5-10.1); CREATININE 1.1 mg/dL (0.6-1.0); POTASSIUM 3.6 mmol/L (3.5-5.1)
[2020-07-14 04:45] VITALS: BP 155/80
[2020-07-14 06:34] LABS: ABSOLUTE NEUTROPHILS 12.8 thou/uL (1.4-8.2); BASOPHILS 0.5 % (0.0-2.0); EOSINOPHILS 0.7 % (0.0-3.0); HEMOGLOBIN 11.1 gm/dL (12.0-15.0); LYMPHOCYTES 8.9 % (24.0-44.0); MCH 30.4 pg (26.0-34.0); MCHC 32.6 g/dL (28.0-37.0); MCV 93.2 fL (80.0-100.0); MONOCYTES 6.8 % (1.0-8.0); PLATELET COUNT 210 thou/uL (150-400); POLYS 83.1 % (36.0-66.0); RBC 3.64 mil/uL (4.20-5.00); RDW 16.2 % (10.5-14.5); WBC 15.4 thou/uL (4.0-11.0)
[2020-07-14 06:52] LABS: ALBUMIN 2.5 g/dL (3.4-5.0); CALCIUM 8.8 mg/dL (8.5-10.1); MAGNESIUM 1.5 mg/dL (1.8-2.4); TOTAL BILIRUBIN 1.2 mg/dL (0.2-1.0); TOTAL PROTEIN 6.4 g/dL (6.4-8.2)
[2020-07-14 07:38] VITALS: BP 121/58
[2020-07-14 11:22] VITALS: BP 121/62
[2020-07-14 15:25] VITALS: BP 117/65
--- NOTE | 2020-07-14 17:46 | NUR ---
ASSESSMENT CHARTED. PT ALERT AND ORIENTED. VSS. PRN PAIN MED GIVEN WITH PARTIAL RELIEF. CHEST TUBE REMOVED TODAY BY KAMI. UP IN THE CHAIR FOR MEALS. MALCOLM D/CD. NO CARDIAC OR RESPIRATORY DISTRESS NOTED. NO CONCERNS AT THIS TIME.
[2020-07-14 19:51] VITALS: BP 141/49
[2020-07-15 03:57] VITALS: BP 125/49
[2020-07-15 09:55] VITALS: BP 129/70
--- NOTE | 2020-07-15 10:07 | PATH ---
[facility] [address] [place] [address] PATHOLOGY RPT PROCEDURE Name: SABRA DAVID Mallika Room #: 208-P ADM IN M.R.#: [id number] Admission: 07/12/20 Date of : 42 Discharge: Report #: [id number] Path Case #: [id number] [facility] Accession Number: [id number] . 01 Material submitted: . PART A: lymph node - LEVEL 9 LYMPH NODE PART B: lymph node - SECOND LEVEL 9 NODE. Modifiers: second PART C: lymph node - THIRD LEVEL 9 NODE. Modifiers: third PART D: lymph node - LEVEL 10 LYMPH NODE PART E: lung - RIGHT LOWER LOBE. Modifiers: right, lower lobe PART F: lymph node - SECOND LEVEL 10 NODE. Modifiers: second PART G: lymph node - LEVEL 4R NODE . 01 Clinical history: . LUNG MASS . 02 Diagnosis: A. Lymph node (1), level 9 lymph node, biopsy: - Reactive lymph node with pigmented histiocytes; negative for malignancy (0/1). . B. Second level 9 lymph node: - Reactive lymph node with pigmented histiocytes; negative for malignancy (0/1). . C. Lymph nodes (2), third level 9 lymph nodes, biopsy: - Reactive lymph nodes with pigmented histiocytes; negative for malignancy (0/2). . D. Level 10 lymph node: - Reactive lymph node with pigmented histiocytes; negative for malignancy (0/1). . E. 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 - DIRECT EXTENSION INTO MAIN BRONCHUS AND ITS ADJACENT VESSEL (ARTERY). - Negative for lymphovascular space invasion. - Bronchial margin 1.9 cm away and free of malignancy. - Parenchymal margin 1.5 cm away and free of malignancy. - Vascular margin free of malignancy. - Closest visceral pleural surface is at least 8 mm away. - 9 hilar lymph nodes showing reactive lymphoid hyperplasia with pigmented histiocytes; negative for malignancy (0/9). . F. Lymph node (1), second level 10 node, biopsy: - Reactive lymph node with pigmented histiocytes; negative for malignancy (0/1). [address] [address] PATHOLOGY RPT PROCEDURE Name: SABRA DAVID Room #: 208-P ADM IN ..#: [id number] Admission: 07/12/20 Date of : 42 Discharge: Report #: [id number] Path Case #: [id number] . G. Lymph nodes, (2), level 4R nodes, biopsy: - Reactive lymph nodes with pigmented histiocytes; negative for malignancy (0/2). . (IUV:mml; 07/14/2020) . . . Surgical Pathology Cancer Case Summary . Protocol Posting Date: September 2019 . LUNG: Procedure- Lobectomy Specimen Laterality- Right Tumor Site- Lower lobe of lung Tumor Size- 5 cm in greatest dimensions Tumor Focality- Single tumor Histologic Type- Squamous cell carcinoma Histologic Grade- G2: Moderately differentiated Spread Through Air Spaces- Not identified Visceral Pleura Invasion- Not identified Lymphovascular Invasion- Not identified Direct Invasion of Adjacent Structures- Invasion into adjacent Main Bronchial and Vascular structures Margins- All margins are uninvolved by tumor Margins examined: Bronchial, Vascular Parenchymal margin and Visceral Pleura Distance of invasive carcinoma from closest margin (centimeters): 0.8 cm (8 mm) Specify closest margin: Visceral pleural margin Treatment Effect- No known presurgical therapy Regional Lymph Nodes- Number of Lymph Nodes Involved: 0 Number of Lymph Nodes Examined: 17 Specify terra station(s) examined: Level 9 lymph nodes, Level 10 lymph nodes, Level 4R lymph nodes and Hilar Lymph nodes. . . Pathologic Stage Classification (pTNM, AJCC 8th Edition) . TNM Descriptors- None Primary Tumor (pT) pT2b: Tumor greater than 4 cm, but equal to or less than 5 cm in greatest dimensions Regional Lymph Nodes (pN) pN0: No regional lymph node metastasis Distant Metastasis (pM): pMx (unknown) R 07/15/[address] [address] PATHOLOGY RPT PROCEDURE Name: SABRA DAVID Room #: 208-P [facility] IN M.R.#: [id number] Admission: 07/12/20 Date of : 42 Discharge: Report #: [id number] Path Case #: [id number] . 02 Comment: The most recent biopsy tissue examined ([id number], B) showed a squamous cell carcinoma which was confirmed by appropriate immunohistochemical stains. Please refer to separate report for complete details. . A properly controlled p63 immunohistochemical stain is performed on block E5 in order to assess visceral pleural margin and it shows tumor approximately 8 mm away from the surface. (IUV:mml; 07/14/2020) . 02 Electronically signed: . Anna Interiano MD, Pathologist NPI- [id number] . 01 Gross description: . A. The specimen is received in formalin, labeled "Sabra David, level 9 lymph node" and consists of a lymph node measuring 1.3 x 0.8 x 0.4 cm showing gresham to dark pearl cut surfaces. The specimen is entirely submitted in A1. . B. The specimen is received in formalin, labeled "Sabra David, second level 9 node" and consists of a lymph node candidate measuring 0.6 x 0.5 x 0.3 cm which is entirely submitted in B1. . C. The specimen is received in formalin, labeled "Sabra David, third level 9 node" and consists of 2 lymph node candidates measuring 1.1 x 0.8 x 0.5 cm and 1.5 x 0.9 x 0.5 cm. One is inked black. Sectioning reveals gresham to dark pearl/black cut surfaces. They are entirely submitted in C1-C2. . D. The specimen is received in formalin, labeled "Sabra David, level 10 lymph node" and consists of a lymph node measuring 0.4 x 0.4 x 0.3 cm showing pearl-black cut surfaces. The specimen is entirely submitted in D1. . E. The specimen is received in formalin, labeled "Sabra David, right lower lobe" and consists of a 172 g lobectomy specimen measuring 14.4 x 9.0 x 4.7 cm with a bronchial stump measuring 1.1 cm in length. There is a linear line of martin measuring 3.7 cm. The martin are removed and further inked blue. The pleura is dark pearl-gresham and intact. There is a palpable mass with retraction of the pleura and this area is further inked black. The bronchi are opened revealing marked calcifications. Further sectioning reveals a white mass showing white, soft, and friable cut surfaces measuring 5.0 x 4.5 cm that abuts the main bronchus, is 1.5 cm to the parenchymal staple line, 1.9 cm to bronchial stump margin, and abuts [address] [address] PATHOLOGY RPT PROCEDURE Name: FRANKIESABRA Room #: 208-P [facility] IN [facility].#: [id number] Admission: 07/12/20 Date of : 42 Discharge: Report #: [id number] Path Case #: [id number] the inked pleura. The uninvolved parenchyma is gresham-brown with no additional gross lesions. There are multiple hilar lymph nodes measuring between 0.3 cm and 1.2 cm showing white-black cut surfaces. Call Box Wirer sections are submitted as follows: . E1: Bronchial stump to include trisected lymph node E2-E3: Mass to bronchi following light decalcification E4: Mass to pleura E5: Mass to uninvolved parenchyma E6: Uninvolved parenchyma E7: One bisected lymph node E8: 1 trisected lymph nodes E9: 2 bisected lymph nodes, one blue E10: 1 bisected lymph node E11: 2 intact lymph node candidates . F. The specimen is received in formalin, labeled "[place] Sabra, second level 10 node" and consists of a segment of brown tissue/lymph node candidate measuring 0.5 x 0.3 x 0.2 cm which is entirely submitted in F1. . G. The specimen is received in formalin, labeled "FrankieSabra, level 4R node" and consists of 2 irregular segments of yellow to black tissue/lymph node candidate measuring 0.8 x 0.3 x 0.3 cm and 0.9 x 0.6 x 0.3 cm which are entirely submitted in G1. (SDY; 07/13/2020) SYU/SYU 07/14/2020 1603 Local . 02 Pathologist provided ICD-10: C34.31 . 02 CPT . 947096, [id number], 689536, 160189, 234052, B20205 Specimen Comment: A courtesy copy of this report has been sent to [phone] Specimen Comment: [phone] Specimen Comment: Report sent to / DR MCKEON Performed at: [address] [facility], [place], [place] [id number] MD Sammy Sun MD Phone: [phone] Performed at: [address] [facility] [id number] MD Anna Interiano MD Phone: [phone]
[2020-07-15 11:09] VITALS: BP 121/85
[2020-07-15 14:09] LABS: PROTIME 9.9 Seconds (9.3-11.4)
[2020-07-15 15:40] VITALS: BP 129/63
--- NOTE | 2020-07-15 17:19 | NUR ---
ASSESSMENT CHARTED. PT ALERT AND ORIENTED. VSS. PRN PAIN MED GIVEN WITH PARTIAL RELIEF. SOB NOTED WITH ACTIVITY. EVALUATED BY PT/OT/ SPEECH. PT PROGRESSING WELL TOWARDS DISCHARGE GOAL. NO CONCERNS AT THIS TIME.
[2020-07-15 19:48] VITALS: BP 124/61
[2020-07-16 04:00] VITALS: BP 131/56
[2020-07-16 08:27] VITALS: BP 144/63
--- NOTE | 2020-07-16 08:27 | NUR ---
ASSUMED CARE OF THE PATIENT AT 1900; AOX4/ STANDBY ASSIST TO TOILET; SR ON THE MONITOR; 3L N/C POST-PROCEDURE WITH OXYGEN SATs 92-PERCENT AND ABOVE; SOB ON EXERTION; INCISIONAL SITES WITH DRESSINGS IN PLACE DRY AND INTACT; C/O OF PAIN MANAGED WITH MEDICATIONS THROUGHOUT THE NOC; BG CHECKS WITH COVERAGE NEEDED; PLAN IS FOR PATIENT TO D/C TO HOME TODAY WITH PT/OT; WILL CONTINUE TO MONITOR.
[2020-07-16 12:13] VITALS: BP 152/78
[2020-07-16 15:59] VITALS: BP 152/78
--- NOTE | 2020-07-16 17:34 | NUR ---
Patient to nm home with care and oxygen. [facility] delivered oxygen tank for home and will set up once home. [facility] services [facility]. Patient with no preference. Faxed orders and referral to [facility] and [facility] home health care. Sp with both agencies no further needs/
--- NOTE | 2020-07-16 17:57 | NUR ---
PT WAS EDUCATED ON DISCHARGE PAPERWORK. PT UNDERSTOOD FOLLOW UP APPT WITH HER PRIMARY, AND ADDL FOLLOW UP WITH CARDIOLOGY AT [facility]. PT WAS PROVIDED CONTACT INFORMATION FOR HOME HEALTH AND OXYGEN COMPANY. PT ALSO REVIEWED MEDICATIONS SHE WILL CONTINUE AT HOME. PT UNDERSTOOD AND SIGNED MEDICARE PAPERWORK.
== END 2020-07-16 18:04 | disposition home health service (06) | DRG 853 ==
LOC: 2N 06:07 → ICU 06:07 → TBA 06:07 → PRE 07:49 → ICU 12:13 → 2N 07-13 16:20
PROVIDERS: Internal Medicine; Physician Assistant; ADMIT Surgery Vascular Surgery; ATTEND Surgery Vascular Surgery
DX: A41.9 Sepsis, unspecified organism (principal); J18.9 Pneumonia, unspecified organism; C34.31 Malignant neoplasm of lower lobe, right bronchus or lung; Z16.12 Extended spectrum beta lactamase (ESBL) resistance; J93.83 Other pneumothorax; E11.9 Type 2 diabetes mellitus without complications; I10 Essential (primary) hypertension; E78.5 Hyperlipidemia, unspecified; E03.9 Hypothyroidism, unspecified; Z88.0 Allergy status to penicillin; D72.829 Elevated white blood cell count, unspecified; Z86.718 Personal history of other venous thrombosis and embolism; K21.9 Gastro-esophageal reflux disease without esophagitis
CPT/HCPCS: 10078; 10081; 27000; 50010; 50101; 50386; 50417; 50455; 50497; 50607; 50649; 50739; 50740; 51301; 52191; 52301; 52303; 54118; 56455; 56524; 56525; 56526; 56527; 56528; 62110; 62900; 65020; 65040; 65090; 70005

== ENCOUNTER → 2020-10-11 | Outpatient (CLI) | payer OTHER ==
[2020-10-11 09:25] LABS: CREATININE 0.9 mg/dL (0.6-1.0)
== END ==
LOC: CAT 08:39
PROVIDERS: ATTEND Internal Medicine Hematology & Oncology
DX: C34.31 Malignant neoplasm of lower lobe, right bronchus or lung (principal); J90 Pleural effusion, not elsewhere classified; J92.9 Pleural plaque without asbestos

== ENCOUNTER → 2021-04-08 | Outpatient (CLI) | payer OTHER ==
[2021-04-08 10:16] LABS: ABSOLUTE NEUTROPHILS 5.4 thou/uL (1.4-8.2); BASOPHILS 0.3 % (0.0-2.0); EOSINOPHILS 3.7 % (0.0-3.0); HEMATOCRIT 36.1 % (37.0-47.0); LYMPHOCYTES 24.9 % (24.0-44.0); MCH 31.3 pg (26.0-34.0); MCHC 33.3 g/dL (28.0-37.0); MCV 94.1 fL (80.0-100.0); MONOCYTES 7.5 % (1.0-8.0); PLATELET COUNT 254 thou/uL (150-400); POLYS 63.6 % (36.0-66.0); RBC 3.84 mil/uL (4.20-5.00); RDW 14.5 % (10.5-14.5); WBC 8.5 thou/uL (4.0-11.0)
[2021-04-08 10:32] LABS: ALBUMIN 3.4 g/dL (3.4-5.0); CALCIUM 8.3 mg/dL (8.5-10.1); CREATININE 1.1 mg/dL (0.6-1.0); POTASSIUM 3.9 mmol/L (3.5-5.1); TOTAL BILIRUBIN 0.5 mg/dL (0.2-1.0); TOTAL PROTEIN 7.5 g/dL (6.4-8.2)
== END ==
LOC: CAT 08:43
PROVIDERS: ATTEND Registered Nurse
DX: C34.31 Malignant neoplasm of lower lobe, right bronchus or lung (principal); J90 Pleural effusion, not elsewhere classified; J98.4 Other disorders of lung

== ENCOUNTER → 2021-06-10 | Outpatient (CLI) | payer OTHER | END | disposition home or self-care (01) | LOC: BC 09:29 | PROVIDERS: ATTEND Family Medicine | DX: Z12.31 Encounter for screening mammogram for malignant neoplasm of breast (principal) ==